=== PATIENT | female | born 2000 | race American Indian/Alaskan Native ===

== ENCOUNTER 2019-12-28 19:16 | Emergency (ER) | payer SELFPAY ==
[2019-12-28 19:52] VITALS: BP 118/56
--- NOTE | 2019-12-28 20:00 | Emergency Department Report ---
- General Chief complaint: Skin/Abscess/Foreign Body Stated complaint: LOCALIZED INFLAMMATION Time Seen by Provider: 12/28/19 19:48 Source: patient Mode of arrival: Ambulatory Limitations: No Limitations - History of Present Illness Initial comments: Patient is a 19-year-old female presents emergency room with complaints of areas of swelling and redness to her bilateral legs that began 3 days ago. She states that the right is worse than the left. She denies getting bit by anything. She denies any lacerations or abrasions. She states that the swelling and redness has increased. She states that she recently shaved her legs a few days ago. she denies any drainage, fever, chills, vomiting, diarrhea. She has a past medical history of asthma. No allergies medications. She states her last menstrual cycle was at the end of last month but she denies any possibility of . - Related Data Previous Rx's Medication Instructions Recorded Last Taken Type Ibuprofen [Motrin 600 MG tab] 600 mg PO Q8H PRN #14 tablet 12/28/19 Unknown Rx Neomycin/Bacitracin/Polymyxinb 1 applicatio TP BID #1 oint...g. 12/28/19 Unknown Rx [Triple Antibiotic Ointment] Sulfamethoxazole/Trimethoprim 1 each PO BID 7 Days #14 tablet 12/28/19 Unknown Rx [Bactrim DS TAB] Allergies Allergy/AdvReac Type Severity Reaction Status Date / Time No Known Allergies Allergy Unverified 12/28/19 19:50 Abscess Boil HPI - HPI Chief Complaint: Skin/Abscess/Foreign Body Stated Complaint: LOCALIZED INFLAMMATION Time Seen by Provider: 12/28/19 19:48 Home Medications: Previous Rx's Medication Instructions Recorded Last Taken Type Ibuprofen [Motrin 600 MG tab] 600 mg PO Q8H PRN #14 tablet 12/28/19 Unknown Rx Neomycin/Bacitracin/Polymyxinb 1 applicatio TP BID #1 oint...g. 12/28/19 Unknown Rx [Triple Antibiotic Ointment] Sulfamethoxazole/Trimethoprim 1 each PO BID 7 Days #14 tablet 12/28/19 Unknown Rx [Bactrim DS TAB] Allergies/Adverse Reactions: Allergies Allergy/AdvReac Type Severity Reaction Status Date / Time No Known Allergies Allergy Unverified 12/28/19 19:50 ED Review of Systems ROS: Stated complaint: LOCALIZED INFLAMMATION Other details as noted in HPI Comment: All other systems reviewed and negative ED Past Medical Hx - Past Medical History Previous Medical History?: Yes Hx Asthma: Yes - Surgical History Past Surgical History?: No - Social History Smoking Status: Never Smoker Substance Use Type: None - Medications Home Medications: Home Medications Medication Instructions Recorded Confirmed Last Taken Type Ibuprofen [Motrin 600 MG tab] 600 mg PO Q8H PRN #14 tablet 12/28/19 Unknown Rx Neomycin/Bacitracin/Polymyxinb 1 applicatio TP BID #1 oint...g. 12/28/19 Unknown Rx [Triple Antibiotic Ointment] Sulfamethoxazole/Trimethoprim 1 each PO BID 7 Days #14 tablet 12/28/19 Unknown Rx [Bactrim DS TAB] ED Physical Exam - General Limitations: No Limitations General appearance: alert, in no apparent distress - Head Head exam: Present: atraumatic, normocephalic - Eye Eye exam: Present: normal appearance - ENT ENT exam: Present: mucous membranes moist - Respiratory Respiratory exam: Absent: respiratory distress, accessory muscle use - Neurological Exam Neurological exam: Present: alert, oriented X3 - Psychiatric Psychiatric exam: Present: normal affect, normal mood - Skin Skin exam: Present: warm, dry, other (1 cm area of induration to the left lateral thigh, mild area of erythema, 2 cm area of induration present to the right lateral thigh, there is a 5 cm area of surrounding erythema, there is a one cm area of induration to the right lateral thigh just inferior with mild erythema, no flutuance in any of the areas, no drainage, no necrosis) ED Course Vital Signs 12/28/19 19:48 Temperature 99.5 F Pulse Rate 103 H Respiratory 18 Rate Blood Pressure 118/56 O2 Sat by Pulse 97 Oximetry ED Medical Decision Making - Medical Decision Making Patient is a 19-year-old female presents emergency room with complaints of areas of swelling and redness to her bilateral legs that began 3 days ago. She states that the right is worse than the left. She denies getting bit by anything. She denies any lacerations or abrasions. She states that the swelling and redness has increased. She states that she recently shaved her legs a few days ago. she denies any drainage, fever, chills, vomiting, diarrhea. She has a past medical history of asthma. No allergies medications. She states her last menstrual cycle was at the end of last month but she denies any possibility of . Vitals are stable. On exam: 1 cm area of induration to the left lateral thigh, mild area of erythema, 2 cm area of induration present to the right lateral thigh, there is a 5 cm area of surrounding erythema, there is a one cm area of induration to the right lateral thigh just inferior with mild erythema, no flutuance in any of the areas, no drainage, no necrosis. It appears that it originally began as a folliculitis, she is now having cellulitis. There is no drainable abscess at this time. Patient given prescription for Bactrim, triple antibiotic ointment, ibuprofen. Area of erythema marked with a skin marker while in the ED. Advised patient Please use medication as prescribed. Increase your water intake. Follow-up with your primary care doctor within the next 2 to 3 days for reexamination of the area. Do not shave your legs. Please throw away your razors. Return to emergency room immediately for any new or worsening symptoms including but not limited to worsening pain, worsening swelling, worsening redness, fever, vomiting, chills, if the redness crosses the line that was drawn. Critical care attestation.: If time is entered above; I have spent that time in minutes in the direct care of this critically ill patient, excluding procedure time. ED Disposition Clinical Impression: Cellulitis Qualifiers: Site of cellulitis: extremity Site of cellulitis of extremity: lower extremity Laterality: unspecified laterality Qualified Code(s): L03.119 - Cellulitis of unspecified part of limb Disposition: DC- TO HOME OR SELFCARE Is pt being admited?: No Does the pt Need Aspirin: No Condition: Stable Instructions: Cellulitis (ED) Additional Instructions: Please use medication as prescribed. Increase your water intake. Follow-up with your primary care doctor within the next 2 to 3 days for reexamination of the area. Do not shave your legs. Please throw away your razors. Return to emergency room immediately for any new or worsening symptoms including but not limited to worsening pain, worsening swelling, worsening redness, fever, vomiting, chills, if the redness crosses the line that was drawn. Prescriptions: Sulfamethoxazole/Trimethoprim [Bactrim DS TAB] 1 each PO BID 7 Days #14 tablet Ibuprofen [Motrin 600 MG tab] 600 mg PO Q8H PRN #14 tablet PRN Reason: Pain Neomycin/Bacitracin/Polymyxinb [Triple Antibiotic Ointment] 1 applicatio TP BID #1 oint...g. Referrals: your, primary care doctor [Other] - 2-3 Days Time of Disposition: 19:58 Print Language: FRENCH
== END 2019-12-28 20:00 | disposition home or self-care (01) ==
LOC: ED 19:16
DX: L03.116 Cellulitis of left lower limb (principal); L03.115 Cellulitis of right lower limb; J45.909 Unspecified asthma, uncomplicated; Z79.1 Long term (current) use of non-steroidal anti-inflammatories (NSAID); Z79.899 Other long term (current) drug therapy
CPT/HCPCS: 99282